=== PATIENT | male | born 1985 | race Caucasian/White ===

== ENCOUNTER 2023-12-04 04:00 | Day surgery (SDC) | payer OTHER ==
[2023-12-04] VITALS (216 sets, daily range): BP systolic 89–142; BP diastolic 42–80
[~2023-12-04] VITALS: Ht 177.8 cm; Wt 94.0 kg
--- NOTE | 2023-12-04 07:00 | NUR ---
Arrival & Pre-treatment Patient arrived to the [facility]R suite, identification and demographics confirmed. Patient to room 8, AAO, ambulatory, vitals obtained, ID/allergy/fall bands placed, changed into hospital gown, [place] hose, and non-slip socks. Procedure and timeline explained for treatment and discharge. All questions answered and the patient presents no concerns at this time.
--- NOTE | 2023-12-04 07:35 | NUR ---
Dr. Pacheco telephoned with patient intake information including usage, dose, last dose/time taken and initial vital signs. Patient history and allergies reviewed with MD. Orders received for 10 + 5 PRN mg PO Valium and 0.2 mg PO Clonidine now. Will reassess per protocol in 1.5 hours and update MD with assessment and vitals. Patient medicated per MD orders. In addition to Clonidine and Valium, patient received 1000 mcg B12 PO, 20 mg Pepcid PO, and Scopolamine TD patch. Medication indication and education provided prior to administration.
--- NOTE | 2023-12-04 08:15 | NUR ---
Multiple attempts made by SN and other staff to initiate IV access. SN unable to obtain access or blood draw. Consent form signed by patient for Central line access.
[2023-12-04] MEDS ORDERED: METHADONE10 M1 PO (08:46)
--- NOTE | 2023-12-04 09:40 | NUR ---
Patients vital signs within pre-treatment parameters for 1.5 hour recheck. No indication for additional Valium or Clonidine as patient is resting comfortably and vital signs are within range.
--- NOTE | 2023-12-04 10:30 | NUR ---
Dr. Pacheco at the bedside inserting a central line in the right groin, triple lumen. Blood obtained and sent to the lab. patient tolerated placement well.
[2023-12-04 11:39] LABS: ALBUMIN 4.1 g/dL (3.2-5.0); ALKALINE PHOSPHATASE 73 u/l (38-126); ANION GAP 7 (6-22 (CALC)); BASO% 0.2 % (0-3); BILIRUBIN, TOTAL 0.6 mg/dL (0.2-1.3); BUN 16 mg/dL (9-20); BUN/CREATININE RATIO 18 (12-20 (CALC)); CARBON DIOXIDE 27 mmol/l (22-30); CHLORIDE 107 mmol/l (95-108); CREATININE 0.9 mg/dL (0.7-1.3); EOS% 1.3 % (0-8); GFR FOR AFR.AMER. > 60 ML/MIN (>=60 (CALC)); GFR OTHER RACES > 60 ML/MIN (>=60 (CALC)); HEMATOCRIT 40.8 % (39.0-50.0); HEMOGLOBIN 13.8 g/dl (14.0-18.0); LYMPH% 28.7 % (15-41); MEAN CELL VOLUME 89.9 fL CALC (80.0-100.0); MEAN CORPUSCULAR HGB 30.4 pG CALC (26.0-32.0); MEAN CORPUSCULAR HGB CONC 33.8 g/dL CAL (32.0-36.0); MONO% 7.3 % (2-13); NEUT# 3.71 thou/uL (1.82-7.42); NEUT% 62.5 % (42-76); POTASSIUM 4.4 mmol/l (3.5-5.1); RED BLOOD COUNT 4.54 mill/uL (4.70-6.10); RED CELL DISTRI WIDTH 11.9 % (11.5-15.5); SGOT/AST 28 u/l (17-59); SODIUM 137 mmol/l (137-146); TOTAL PROTEIN 6.3 g/dL (6.3-8.2)
--- NOTE | 2023-12-04 11:45 | NUR ---
Induction Note Patient in [facility] procedure room 8. Time out performed at 1145 . Patient placed on monitors, Erma hugger, bilateral wrist restraints applied for ET tube protection. Versed 5mg given IV push at 1146. Central line , triple lumen on right groin Lidocaine 100mg given at 1147 IV push followed by Rocoronium 10mg at 1148 IV push and held for 90 seconds. Propofol bolus of 200mg given at 1149 IV push. Succinylcholine 100mg given IV push at 1150. Smooth intubation with 7.5 ETT. Positive CO2. Positive Auscultation for air exchange. Patient placed on ventilator for spontaneous ventilation. Placed on Propofol IV drip at 1151. OG inserted 1153 . Positive air on auscultation. Positive gastric content. Stomach washed at this time. Naltrexone 50 mg given via OG tube with Clonidine 0.2 mg given via OG Tube. OG clamped for 45 minutes. Will monitor patient for symptoms of withdrawal and adjust propfol accordingly.
--- NOTE | 2023-12-04 13:00 | NUR ---
OG open note OG open at this time. Gastric content draining into drainage bag. OG to drain for 45 minutes. Propofol will be titrated down based on patient.
--- NOTE | 2023-12-04 13:45 | NUR ---
OG close note Stomach washed at this time. Naltrexone 50 mg with Clonidine 0.2 mg via OG tube. OG will be clamped for 45 minutes.
--- NOTE | 2023-12-04 14:30 | NUR ---
OG open note OG open at this time. Gastric content draining into drainage bag. OG to drain for 45 minutes. Propofol will be titrated down based on patient. Brownish/ red drainage present in OG. Dr. Pacheco at the bedside and ordered Protonix 40mg IV. SN will continue to monitor OG drainage.
[2023-12-04] MEDS ORDERED: NALTREXONE50 MG PO (14:59)
[2023-12-04] MEDS ORDERED: CLONIDINE0.1 MG PO (15:00)
[2023-12-04] MEDS ORDERED: KLONOPIN2 MG PO (15:03)
--- NOTE | 2023-12-04 15:15 | NUR ---
OG close note Stomach washed at this time. Naltrexone 50 mg with Clonidine 0.2 mg via OG tube. OG will be clamped for 45 minutes.
--- NOTE | 2023-12-04 16:45 | NUR ---
OG close note Stomach washed at this time. Naltrexone 25 mg with Clonidine 0.2 mg via OG tube. OG will be clamped for 45 minutes.
--- NOTE | 2023-12-04 18:15 | NUR ---
OG close note Stomach washed at this time. Naltrexone 0 mg with Clonidine 0.2 mg via OG tube. OG will be clamped for 20-30 minutes.
--- NOTE | 2023-12-04 18:45 | NUR ---
Extubation note Closing medications given Benadryl 50mg IV push, Decadron 10mg IV push,Magnesium 4 grams IV, Zofran 8mg IV push, Octreotide 100mcg SC. Stomach washed out prior to extubation. Suctioned gastric content. OG removed. Patient extubated. Propofol Discontinued. Wrist restraints removed. Erma hugger Removed. See ANR Moderate sedate recovery record for further notes and assessment.
--- NOTE | 2023-12-04 19:11 | NUR ---
TRANSER NOTE Patient transferred to medical-surgical unit. Report given to receiving nurse at bedside. Treatment, medications, I/O, IV access reviewed with RN. All questions answered. IVF to continue at 100 ml/hr, NC @ 2L, no adventitious breath sounds. Safety precautions in place, bed locked and in lowest position, call light in reach.
--- NOTE | 2023-12-04 19:12 | NUR ---
family member contacted. Questions asked and answered.
--- NOTE | 2023-12-05 | NUR ---
PT MOSTLY SLEEPING NO DISTRESS NOTED. PT WAS BLADDER SCANNED SINCE HE HAD MINIMAL OUTPUT READING SHOWED 290. PT ENCOURAGED TO URINATE WITH SUCCESS. BED ALARM ON.
[2023-12-05 04:07] VITALS: BP 114/62
[2023-12-05 05:15] LABS: ALBUMIN 3.8 g/dL (3.2-5.0); ALKALINE PHOSPHATASE 84 u/l (38-126); BUN 15 mg/dL (9-20); BUN/CREATININE RATIO 17 (12-20 (CALC)); CARBON DIOXIDE 23 mmol/l (22-30); CHLORIDE 107 mmol/l (95-108); CREATININE 0.9 mg/dL (0.7-1.3); GFR FOR AFR.AMER. > 60 ML/MIN (>=60 (CALC)); GFR OTHER RACES > 60 ML/MIN (>=60 (CALC)); MAGNESIUM 2.2 mg/dL (1.6-2.3); SGOT/AST 31 u/l (17-59); SODIUM 137 mmol/l (137-146); TOTAL PROTEIN 6.1 g/dL (6.3-8.2)
[2023-12-05 05:17] LABS: ANION GAP 11 (6-22 (CALC)); BILIRUBIN, TOTAL 0.9 mg/dL (0.2-1.3); POTASSIUM 3.5 mmol/l (3.5-5.1)
[2023-12-05 05:18] LABS: BASO% 0.1 % (0-3); HEMATOCRIT 39.9 % (39.0-50.0); HEMOGLOBIN 14.3 g/dl (14.0-18.0); IMMATURE GRANULOCYTES 0.2 % (0.0-5.0); LYMPH% 5.5 % (15-41); MEAN CELL VOLUME 87.7 fL CALC (80.0-100.0); MEAN CORPUSCULAR HGB 31.4 pG CALC (26.0-32.0); MEAN CORPUSCULAR HGB CONC 35.8 g/dL CAL (32.0-36.0); MONO% 3.9 % (2-13); NEUT# 10.1 thou/uL (1.82-7.42); NEUT% 90.3 % (42-76); RED BLOOD COUNT 4.55 mill/uL (4.70-6.10); RED CELL DISTRI WIDTH 11.7 % (11.5-15.5)
--- NOTE | 2023-12-05 06:01 | NUR ---
PT RESTING AFTER ASSISTING HIM TO RESTROOM. PT HAD A BM AND URINATED. PT HELPED BACK TO BED. BED ALARM ON.
[2023-12-05 07:29] VITALS: BP 125/56
--- NOTE | 2023-12-05 08:00 | NUR ---
PT IN BED RESTING, EYES OPENED TO VOICE. PT IS ALERT AND ORIENTED X3, PT HAS NO C/O PAIN AT THIS TIME. PT HAS RIGHT FEMORAL TRIPLE LUMEN WITH LR INFUSING @ 100 ML/HR. PT LUNGS CLEAR THROUGHOUT, BREATHING IS NON LABORED. PT ABD IS SOFT WITH ACTIVE BS. PT AMBULATING WELL TO BATHROOM EITH STANDBY ASSIST. PT HAS CALL LIGHT WITHIN REACH AND SAFETY MEASURES IN PLACE AT THIS TIME.
--- NOTE | 2023-12-05 08:40 | NUR ---
PT C/O NAUSEA. ZOFRAN PRN GIVEN IV ORDERED. PT HAS CALL LIGHT WITHIN REACH AND SAFETY MEASURES IN PLACE AT THIS TIME.
--- NOTE | 2023-12-05 12:00 | NUR ---
PT IN BED RESTING, EYES OPENED TO VOICE. PT REMAINS DROWSY. PT ENCOURAGED TO EAT AND DRINK, BUT REFUSES AT THIS TIME. PT HAS CALL LIGHT WITHIN REACH AND SAFETY MEASURSE IN PLACE.
--- NOTE | 2023-12-05 16:00 | NUR ---
PT CONTINUES TO BE DROWSY, UP TO BATHROOM FOR TOILETING. PT TO STAY ANOTHER NIGHT ON MED SURGE. ORDERD RECIEVED AND PT TRANSFERRED.
[2023-12-05 19:09] VITALS: BP 112/47
--- NOTE | 2023-12-05 20:00 | NUR ---
RECEIVED REPORT FROM NURSE [place], PATIENT RESTING WITH EYES CLOSED,PATIENT STLL C/O MILD NAUSEA, PRN ZOFRAN GIVEN, PATIENT DENIES PAIN AT THIS TIME, IV ON RT FEMORAL TRIPLE LUMEN PATENT FLUSHES WELL WITH BLOOD RETURN LR AT 100CC/HR INFUSING WELL, PATINET STATED FEELS TIRED, BREATHING UNLAORED, CALL LIGHT IN REACH.
--- NOTE | 2023-12-05 20:24 | NUR ---
PATINET C/O MILD NAUSEA PRN ZOFRAN GIVEN.
--- NOTE | 2023-12-06 | NUR ---
PATIENT RESTING IN BED, EYES CLOSED, BREATHING EVN UNLABORED CALL LIGHT IN REACH.
[2023-12-06 00:47] VITALS: BP 113/50
--- NOTE | 2023-12-06 04:00 | NUR ---
PATIENT RESTING IN BED, AROUSABLE, PATINET STATED STILL FEELS WEAK, REMAINS ON LR AT 100CC/HR INFUSING WELL, LABS OBTAINED FROM TRIPLE LUMEN, BED ALARM IN PLACED.
[2023-12-06 04:33] VITALS: BP 115/59
[2023-12-06 06:35] LABS: BASO% 0.2 % (0-3); HEMATOCRIT 41.1 % (39.0-50.0); HEMOGLOBIN 14.1 g/dl (14.0-18.0); IMMATURE GRANULOCYTES 0.2 % (0.0-5.0); LYMPH% 10.3 % (15-41); MEAN CELL VOLUME 88.2 fL CALC (80.0-100.0); MEAN CORPUSCULAR HGB 30.3 pG CALC (26.0-32.0); MEAN CORPUSCULAR HGB CONC 34.3 g/dL CAL (32.0-36.0); MONO% 6.3 % (2-13); NEUT# 10.1 thou/uL (1.82-7.42); RED BLOOD COUNT 4.66 mill/uL (4.70-6.10)
[2023-12-06 06:51] VITALS: BP 110/54
[2023-12-06 07:01] LABS: ALBUMIN 3.7 g/dL (3.2-5.0); ALKALINE PHOSPHATASE 77 u/l (38-126); ANION GAP 9 (6-22 (CALC)); BILIRUBIN, TOTAL 0.7 mg/dL (0.2-1.3); BUN 18 mg/dL (9-20); BUN/CREATININE RATIO 20 (12-20 (CALC)); CARBON DIOXIDE 26 mmol/l (22-30); CHLORIDE 111 mmol/l (95-108); CREATININE 0.9 mg/dL (0.7-1.3); GFR FOR AFR.AMER. > 60 ML/MIN (>=60 (CALC)); GFR OTHER RACES > 60 ML/MIN (>=60 (CALC)); POTASSIUM 3.3 mmol/l (3.5-5.1); SGOT/AST 31 u/l (17-59); SODIUM 143 mmol/l (137-146)
--- NOTE | 2023-12-06 08:00 | NUR ---
RECEIVED REPORT FROM NIGHTSHIFT NURSE. PT NOTED LAYING IN BED ON LEFT SIDE SLEEPING AT THIS TIME. PT ON RM AIR, IV SITE APPEARS HEALTHY AND INTACT. PT EASY TO AROUSE. CALL LIGHT WITHIN REACH AND SAFETY PRECAUTIONS IN PLACE.
--- NOTE | 2023-12-06 12:00 | NUR ---
pt c/o nausea, zofran givrn as ordered. pt has call light within reach and safety measures in place at this time.
--- NOTE | 2023-12-06 14:35 | NUR ---
Discharge instructions given. Patient verbalizes understanding of same. Discharged in stable condition via Wheelchair to Home with family. All belongings sent with pt.
== END 2023-12-06 14:22 | disposition home or self-care (01) | DRG 897 ==
LOC: MS2 04:00 → ANR 04:00 → MS2 12-05 16:50 → ANR 12-06 14:22
PROVIDERS: ATTEND Anesthesiology Critical Care Medicine
DX: F11.20 Opioid dependence, uncomplicated (principal)
CPT/HCPCS: J2354; J3475; S0164